=== PATIENT | female | born 1970 | race Two or more races ===

== ENCOUNTER 2024-01-31 15:26 | Emergency (ER) | payer OTHER ==
[~2024-01-31] VITALS: Ht 157.5 cm; Wt 69.4 kg
[2024-01-31] MEDS ORDERED: FAMOTIDINE/PF 20 MG in 0.9 % SODIUM CHLORIDE 8 ML IV PUSH STA (17:03)
[2024-01-31] MEDS ORDERED: KETOROLAC TROMETHAMINE 30 MG VIAL IV ONE (17:15)
[2024-01-31] MEDS ORDERED: ONDANSETRON HCL 2 MG/ML VIAL IV ONE (17:15)
[2024-01-31] MEDS ORDERED: 0.9 % SODIUM CHLORIDE 1,000 ML IV SCH (17:15)
[2024-01-31 17:51] LABS: HEMATOCRIT 42.6 % (36.0-45.00); HEMOGLOBIN 14.6 g/dL (12.0-15.00); MEAN CELL VOLUME 83.7 fL (80.00-100.00); MEAN CORPUSCULAR HEMOGLOBIN 28.7 pg (27.00-32.0); MEAN CORPUSCULAR HGB CONC 34.3 g/dl (32.0-36.0); PLATELET COUNT 243 K/uL (150-450); RED BLOOD COUNT 5.09 M/uL (4.00-6.00); RED CELL DISTRIBUTION WIDTH 13.1 % (11.5-14.5)
[2024-01-31 18:20] LABS: ALBUMIN 4.1 gm/dL (3.4-5.0); BILIRUBIN TOTAL 0.59 mg/dL (0.3-1.2); BILIRUBIN,CONJUGATED 0.11 mg/dL (0.0-0.2); BILIRUBIN,UNCONJUGATED 0.48 mg/dL (0.0-0.6); CALCIUM 10.3 mg/dL (8.5-10.1); CREATININE SERUM 0.65 mg/dL (0.55-1.02); GFR 95.35; GLOBULINA 3.9 G/DL (2.4-3.5); POTASSIUM 4.05 mEq/L (3.5-5.1)
[2024-01-31] MEDS ORDERED: PEPCID AC20 MG PO (19:53)
[2024-01-31] MEDS ORDERED: ONDANSETRON ODT8 MG PO (19:53)
== END 2024-01-31 20:15 | disposition home or self-care (01) ==
LOC: ER 15:28
PROVIDERS: General Practice
DX: K29.70 Gastritis, unspecified, without bleeding (principal); R10.9 Unspecified abdominal pain

== ENCOUNTER 2024-02-04 14:17 | Inpatient (IN) | payer OTHER ==
[~2024-02-04] VITALS: Ht 167.6 cm; Wt 68.0 kg
[~2024-02-04 14:17] MED LIST: ONDANSETRON ODT8 MG PO; PEPCID AC20 MG PO
--- NOTE | 2024-02-04 15:08 | NUR ---
PACIENTE ALERTA Y ORIENTADA X 3. REFIERE VOMITOS DESDE EL LUNES QUE MEJORARON KRYSTINA Y REGRESARON MIERCOLES, HOY VOMITOS X 3 Y DOLOR ABDOMINAL.
[2024-02-04] MEDS ORDERED: FAMOTIDINE/PF 20 MG in 0.9 % SODIUM CHLORIDE 8 ML IV PUSH STA (16:23)
[2024-02-04] MEDS ORDERED: 0.9 % SODIUM CHLORIDE 1,000 ML IV SCH ×2 (16:30→19:00)
[2024-02-04] MEDS ORDERED: METHYLPREDNISOLONE SOD SUCC 125 MG VIAL IV ONE (16:30)
[2024-02-04] MEDS ORDERED: METOCLOPRAMIDE HCL 10 MG in 0.9 % SODIUM CHLORIDE 50 ML IV ONE (16:30)
--- NOTE | 2024-02-04 16:36 | NUR ---
SE EDUCA A PTE SOBRE TX MEDICO, SE SARAH MUESTRAS DE LABORATORIO UTILIZANDO MEDIDAS ASEPTICAS. SE COLOCA H/L LUIS ANGEL DE EDEMA. SE ADMINISTRAN MEDCIAMENTOS LOS CUALES TOLERA.
[2024-02-04 16:40] LABS: HEMATOCRIT 41.6 % (36.0-45.00); MEAN CORPUSCULAR HEMOGLOBIN 28.3 pg (27.00-32.0); MEAN CORPUSCULAR HGB CONC 33.7 g/dl (32.0-36.0); PLATELET COUNT 236 K/uL (150-450); RED BLOOD COUNT 4.96 M/uL (4.00-6.00); RED CELL DISTRIBUTION WIDTH 13.1 % (11.5-14.5)
[2024-02-04 17:00] LABS: ALBUMIN 4.2 gm/dL (3.4-5.0); ALKALINE PHOSPHATASE 89 U/L (50-136); ALT/SGPT 29 U/L (12-78); AMYLASE 54 U/L (25-115); ANION GAP 10 (10.0-20.0); AST/SGOT 14 U/L (15-37); BILIRUBIN TOTAL 0.31 mg/dL (0.3-1.2); BILIRUBIN,CONJUGATED < 0.10 mg/dL (0.0-0.2); BILIRUBIN,UNCONJUGATED 0.21 mg/dL (0.0-0.6); BLOOD UREA NITROGEN 16 mg/dL (7-18); BUN CREA RATIO 24 (7.0-25.0); CALCIUM 9.9 mg/dL (8.5-10.1); CARBON DIOXIDE 29 mEq/L (21-32); CHLORIDE 109 mmol/L (98-107); CREATININE SERUM 0.66 mg/dL (0.55-1.02); GFR 93.68; GLOBULINA 3.7 G/DL (2.4-3.5); GLUCOSE FASTING 112 mg/dL (65-100); LIPASE 14 U/L (13-75); OSMOLALITY SERUM 289 MOSM/KG (275-295); POTASSIUM 3.88 mEq/L (3.5-5.1); SODIUM 144 mmol/L (136-145); TOTAL PROTEIN 7.9 gm/dL (6.4-8.2)
[2024-02-04] MEDS ORDERED: ONDANSETRON HCL 4 MG in 0.9 % SODIUM CHLORIDE 50 ML IV PRN (19:15)
[2024-02-04] MEDS ORDERED: ACETAMINOPHEN 500 MG GEL..CAP PO PRN (19:15)
[2024-02-04] MEDS ORDERED: HYOSCYAMINE SULFATE 0.125 MG TAB.SUBL PO ONE (19:15)
[2024-02-04] MEDS ORDERED: MEPERIDINE HCL/PF 25 MG/ML VIAL IM PRN (19:15)
[2024-02-04 20:21] LABS: PH,URINE 5.5 (5.0-8.0); URINE APPEARANCE Clear; URINE BILIRRUBIN Negative (NEGATIVE); URINE BLOOD Negative; URINE COLOR Yellow; URINE GLUCOSE Negative (NEGATIVE); URINE LEUKOCYTE Large; URINE NITRATE Negative; URINE PROTEIN Negative (NEGATIVE); URINE UROBILINOGEN 0.2 E.U./dl
[2024-02-04 20:24] LABS: URINE BACTERIA 1584.9 uL (0.0-1933); URINE EPITHELIAL CELLS 26.5 uL (0.0-38.8); URINE RBC 7.3 uL (0.0-20.8); URINE WBC 295.7 uL (0.0-23.2)
[2024-02-04 20:29] LABS: URINE CAST 1.22 uL (0.0-1.40); URINE KETONE 40 (NEGATIVE)
[2024-02-04] MEDS ORDERED: CIPROFLOXACIN IN 5 % DEXTROSE 200 ML IV SCH (21:00)
[2024-02-04 22:24] VITALS: BP 113/74; O2SAT 97
[2024-02-05 00:46] VITALS: BP 95/57
[2024-02-05] MEDS ORDERED: METRONIDAZOLE/SODIUM CHLORIDE 100 ML IV SCH (01:00)
[2024-02-05 08:16] LABS: INR 1.13; PARTIAL THROMBOPLASTIN TIME 25.6 SECONDS (22.0-34.0); PROTHROMBIN TIME 12.2 SECONDS (9.0-11.5)
[2024-02-05] MEDS ORDERED: FAMOTIDINE/PF 20 MG in 0.9 % SODIUM CHLORIDE 8 ML IV PUSH SCH (09:00)
[2024-02-05 09:15] VITALS: BP 110/69; O2SAT 99
[2024-02-05 17:29] VITALS: BP 117/73; O2SAT 98
[2024-02-05] MEDS ORDERED: DIPHENHYDRAMINE HCL 50 MG/ML VIAL 1ML IV PRN (23:45)
[2024-02-06 01:03] VITALS: BP 118/78
[2024-02-06 08:37] VITALS: BP 114/75; O2SAT 98
[2024-02-06 11:40] LABS: HEMATOCRIT 38.9 % (36.0-45.00); HEMOGLOBIN 13.2 g/dL (12.0-15.00); MEAN CELL VOLUME 85.3 fL (80.00-100.00); MEAN CORPUSCULAR HEMOGLOBIN 28.9 pg (27.00-32.0); MEAN CORPUSCULAR HGB CONC 33.9 g/dl (32.0-36.0); PLATELET COUNT 194 K/uL (150-450); RED BLOOD COUNT 4.56 M/uL (4.00-6.00); RED CELL DISTRIBUTION WIDTH 12.9 % (11.5-14.5)
[2024-02-06 12:17] LABS: ALBUMIN 3.6 gm/dL (3.4-5.0); BILIRUBIN TOTAL 0.44 mg/dL (0.3-1.2); CALCIUM 9.4 mg/dL (8.5-10.1); CREATININE SERUM 0.65 mg/dL (0.55-1.02); GFR 95.35; GLOBULINA 2.9 G/DL (2.4-3.5); POTASSIUM 3.97 mEq/L (3.5-5.1); TOTAL PROTEIN 6.5 gm/dL (6.4-8.2)
[2024-02-06 17:31] VITALS: BP 140/80; O2SAT 97
[2024-02-07 01:15] VITALS: BP 114/75
[2024-02-07 08:26] VITALS: BP 120/74; O2SAT 99
[2024-02-07 11:41] LABS: FECAL LEUKOCYTES NEGATIVE (NEGATIVE)
== END 2024-02-07 13:16 | disposition home or self-care (01) | DRG 392 ==
LOC: ER 14:18 → SEC-K 19:25 → MEDJ 19:25
PROVIDERS: General Practice; ADMIT Internal Medicine; ATTEND Internal Medicine
PROC: BW21ZZZ Computerized Tomography (CT Scan) of Abdomen and Pelvis (ICD-10-PCS; principal; 2024-02-04)
DX: A09 Infectious gastroenteritis and colitis, unspecified (principal); K29.70 Gastritis, unspecified, without bleeding; I88.0 Nonspecific mesenteric lymphadenitis; R11.11 Vomiting without nausea